=== PATIENT | male | born 1945 | race Caucasian/White ===

== ENCOUNTER 2022-01-14 14:45 | Inpatient (IN) | payer MEDICARE, SELFPAY ==
--- NOTE | ~2022-01-14 | NM_ITS ---
EXAMINATION: NM pulmonary perfusion DATE: 01/19/2022 12:12 INDICATION: Shortness of breath. TECHNIQUE: 4.94 mCi Tc-99m MAA was administered intravenously for perfusion images. Scintigraphic im ages of the chest were obtained. COMPARISON: Chest single view 01/18/2022 FINDINGS: Perfusion images show matched large defects involving all lobes. IMPRESSION: 1. Nondiagnostic (intermediate probability for pulmonary embolism). Reviewed, dictated and finalized at location A.
--- NOTE | ~2022-01-14 | XR_ITS ---
EXAMINATION: XR chest 1V portable DATE: 01/18/2022 08:20 INDICATION: Dyspnea. TECHNIQUE: A single frontal view of the chest was obtained. COMPARISON: None. FINDINGS: The lungs are hyperexpanded with lucencies, consistent with emphysema. There is a diffuse i nterstitial pattern in the lungs. There are mild airspace opacities in right mid and lower lung zones and left lower lung zone. No pleural effusion or pneumothorax. The heart size is normal. There is a right internal jugular central venous catheter with tip in superior vena cava. IMPRESSION: 1. Diffuse lung disease, likely mild pulmonary edema and/or pneumonia superimposed on emphysema. Reviewed, dictated and finalized at location A. IMPRESSION: 1. Diffuse lung disease, likely mild pulmonary edema and/or pneumonia superimpo sed on emphysema.
[2022-01-14 15:10] VITALS: BMI 23.0
[2022-01-14 15:15] VITALS: O2SAT 91
[2022-01-14 15:52] VITALS: BP 140/86; PULSE 88; RESP 18; TEMP 36.4; O2SAT 91
[2022-01-14 18:49] LABS: Add Urine Microscopic? YES; Appearance Urine Clear (Clear); Bilirubin Urine Negative (Negative); Blood Urine 3+ (Negative); Color Urine Light Yellow (Yellow); Glucose Urine UA Negative (Negative); Ketones Urine Negative (Negative); Leukocyte Esterase Ur Negative LEU/UL (Negative); Nitrate Urine Negative (Negative); Protein Urine 1+ (Negative); Specific Grav Ur <= 1.005 (1.010-1.020); Urobilinogen Urine 0.2 mg/dL (0.2-1.0)
[2022-01-14 18:55] LABS: Bacteria Urine Trace /hpf; WBC Urine 0-3 /hpf (0-3)
[2022-01-14] MEDS: ATORVASTATIN 10 MG TABLET 20 MG PO (20:44)
[2022-01-14] MEDS: FAMOTIDINE 20 MG TABLET PO (20:44)
[2022-01-14] MEDS: HYDROcodone/acetaminophen (*CRX) 10-325 MG TABLET 1 TAB BY MOUTH (20:45)
[2022-01-14 23:33] VITALS: BP 123/51; PULSE 87; RESP 17; TEMP 36.7; O2SAT 90
[2022-01-14 23:36] VITALS: O2SAT 90
[2022-01-15] VITALS (8 sets, daily range): BP systolic 120–137; BP diastolic 55–64; PULSE 88–103; RESP 15–18; TEMP 36.2–36.3; O2SAT 88–97
[2022-01-15] MEDS: TAMSULOSIN HCL 0.4 MG CAPSULE PO (08:47)
[2022-01-15] MEDS: allopurinoL 150 MG TABLET PO (08:47)
[2022-01-15] MEDS: MAGNESIUM OXIDE 400 MG TABLET PO (08:47)
[2022-01-15] MEDS: ASPIRIN 81 MG CHEWABLE TABLET PO (08:47)
[2022-01-15] MEDS: HYDROcodone/acetaminophen (*CRX) 10-325 MG TABLET 1 TAB BY MOUTH ×2 (08:48→17:44)
[2022-01-15] MEDS: LORATADINE 10 MG TABLET PO (08:48)
--- NOTE | 2022-01-15 10:06 | PHAR ---
spoke with pharmacist at [facility] 01/14/22. She said notes in patient chart dictate he is to have a total of 6 weeks of daptomycin starting 01/05, and 27 more days of cefepime therapy upon transfer (last day cefepime therapy 01/10/22). tls
--- NOTE | 2022-01-15 10:24 | PM.IMHP ---
H&P: HPI History of Present Illness Date/Time: 01/15/22 10:24 Chief Complaint: Infected right hip hardware, Weakness Narrative: This is a 76-year-old male that came from [facility] with a revision of his right total hip Arthroplasty plasty with the removal of the spacer and antibiotics due to infection by Dr. Weldon. 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 Patient has a past smoker he smoked for 30 years has quit for more than 20 he has had a tonsillectomy before patient will come to us for IV antibiotics for 6 weeks[address] Mr. Goddard will be toe-touch weightbearing with physical therapy as well his he will not do any straight leg lifts and hip precautions. Patient comes on oxygen of 2.5 L satting between 91 and 97% he denies feeling short of breath patient states he does not understand why he is still on it we will attempt to wean patient from oxygen. Patient also complains of having sore on his heel that he obtained while in the hospital from pushing himself up in the bed after review of the snot open looks like it is healing we will apply some Skin-Prep and elevate his foot at times. Patient also has a Greenberg catheter does not have one at home we will attempt to wean and bladder training him if he is unable to urinate we will maintain the Greenberg catheter. Review last set of labs WBCs was 14 hemoglobin 10.8, [place] 33.8 platelets 290 ALT 24, AST 21 patient has remained afebrile he will continue with physical therapy patient has stage IV chronic kidney disease creatinine is normally around 2-2.2 CHF with reduced EF of 35% history of gout hypertension we will continue to monitor as he participates with therapy and IV antibiotics Review of Systems Review of Systems: Hip pain, heall abrasion healing All systems reviewed & are unremarkable except as noted in HPI and below PMFSH Social History Social History Smoking status: Former smoker Tobacco type: cigarettes Second hand tobacco smoke exposure: Yes Alcohol intake: never Substance use: never Substance use type: does not use Spiritual care concerns: No Comments At time as signature, I have reviewed and agree with nursing past medical, social, surgical and family history. Please see nursing chart for further information. There is no relevant family history pertinent to the presenting complaint. Meds Home Medications and Allergies Home Medications Medication Instructions Recorded Confirmed Type allopurinol 100 mg tablet 150 mg PO DAILY 01/14/22 01/14/22 History aspirin 81 mg chewable tablet 81 mg PO DAILY 01/14/22 01/14/22 History atorvastatin 20 mg tablet 20 mg PO HS 01/14/22 01/14/22 History cefepime 1 gram intravenous 1 g IV Q12H 01/14/22 01/14/22 History piggyback daptomycin 500 mg IV DAILY 01/14/22 01/14/22 History famotidine 20 mg tablet 20 mg PO HS 01/14/22 01/14/22 History hydrocodone 10 mg-acetaminophen 1 tablet Q8-10H PRN Pain 01/14/22 01/14/22 History 325 mg tablet loratadine 10 mg tablet 10 mg PO DAILY 01/14/22 01/14/22 History magnesium oxide 400 mg (241.3 mg 400 mg PO DAILY 01/14/22 01/14/22 History magnesium) tablet metaxalone 800 mg tablet (Skelaxin) 800 mg PO TID PRN Spasms 01/14/22 01/14/22 History metoprolol tartrate 25 mg tablet 25 mg PO BID 01/14/22 01/14/22 History tamsulosin 0.4 mg capsule 0.4 mg PO DAILY 01/14/22 01/14/22 History tramadol 50 mg tablet 50 mg PO Q6H PRN Pain 01/14/22 01/14/22 History Allergies Allergy/AdvReac Type Severity Reaction Status Date / Time No Known Allergies Allergy Verified 01/14/22 16:20 Vital Signs Vital Signs - 24 hr 01/14/22 15:52 01/14/22 23:33 01/14/22 23:36 Temperature 97.
[2022-01-15] MEDS: DAPTOmycin 500 MG in SODIUM CHLORIDE 0.9% IV 50 ML 100 MG IVPB (12:49)
[2022-01-15] MEDS: traMADol HCL (*CRX) 50 MG TABLET PO ×2 (12:57→21:33)
[2022-01-15] MEDS: ATORVASTATIN 10 MG TABLET 20 MG PO (21:23)
[2022-01-15] MEDS: FAMOTIDINE 20 MG TABLET PO (21:24)
[2022-01-16 06:00] VITALS: O2SAT 92
[2022-01-16] MEDS: HYDROcodone/acetaminophen (*CRX) 10-325 MG TABLET 1 TAB BY MOUTH (06:34)
[2022-01-16 07:50] VITALS: BP 112/64; PULSE 106; RESP 18; TEMP 36.2; O2SAT 94
[2022-01-16] MEDS: MAGNESIUM OXIDE 400 MG TABLET PO (09:02)
[2022-01-16] MEDS: ASPIRIN 81 MG CHEWABLE TABLET PO (09:02)
[2022-01-16] MEDS: LORATADINE 10 MG TABLET PO (09:02)
[2022-01-16] MEDS: TAMSULOSIN HCL 0.4 MG CAPSULE PO (09:02)
[2022-01-16] MEDS: allopurinoL 150 MG TABLET PO (09:02)
[2022-01-16] MEDS: traMADol HCL (*CRX) 50 MG TABLET PO ×2 (10:32→18:11)
[2022-01-16] MEDS: DAPTOmycin 500 MG in SODIUM CHLORIDE 0.9% IV 50 ML 100 MG IVPB (13:40)
[2022-01-16 16:00] VITALS: BP 130/68; PULSE 78; RESP 18; TEMP 36.2; O2SAT 95
[2022-01-16] MEDS: FAMOTIDINE 20 MG TABLET PO (20:30)
[2022-01-16] MEDS: ATORVASTATIN 10 MG TABLET 20 MG PO (20:30)
[2022-01-16 23:39] VITALS: BP 127/60; PULSE 83; RESP 18; TEMP 36.2; O2SAT 95
[2022-01-17 06:00] VITALS: RESP 18; O2SAT 92
[2022-01-17] MEDS: HYDROcodone/acetaminophen (*CRX) 10-325 MG TABLET 1 TAB BY MOUTH ×3 (07:52→23:58)
[2022-01-17 08:00] VITALS: BP 131/64; PULSE 98; RESP 18; TEMP 36.2; O2SAT 90
[2022-01-17] MEDS: allopurinoL 150 MG TABLET PO (08:17)
[2022-01-17] MEDS: ASPIRIN 81 MG CHEWABLE TABLET PO (08:18)
[2022-01-17] MEDS: MAGNESIUM OXIDE 400 MG TABLET PO (08:19)
[2022-01-17] MEDS: TAMSULOSIN HCL 0.4 MG CAPSULE PO (08:19)
[2022-01-17] MEDS: LORATADINE 10 MG TABLET PO (08:19)
[2022-01-17] MEDS: DAPTOmycin 500 MG in SODIUM CHLORIDE 0.9% IV 50 ML 100 MG IVPB (11:54)
[2022-01-17] MEDS: traMADol HCL (*CRX) 50 MG TABLET PO ×2 (11:54→20:37)
[2022-01-17 16:00] VITALS: BP 153/70; PULSE 101; RESP 18; TEMP 36.2; O2SAT 91
[2022-01-17] MEDS: ATORVASTATIN 10 MG TABLET 20 MG PO (20:36)
[2022-01-17] MEDS: FAMOTIDINE 20 MG TABLET PO (20:37)
[2022-01-18] VITALS (9 sets, daily range): BP systolic 111–158; BP diastolic 53–80; PULSE 86–114; RESP 18–20; TEMP 36.2–36.6; O2SAT 90–94
--- NOTE | 2022-01-18 02:38 | PC.NURSE ---
[place] is unable to chart on progress on patient care goals. Therefore, the charge nurse charts on the progress, in conjunction with [place].
[2022-01-18] MEDS: traMADol HCL (*CRX) 50 MG TABLET PO (05:55)
[2022-01-18] MEDS: allopurinoL 150 MG TABLET PO (08:21)
[2022-01-18] MEDS: TAMSULOSIN HCL 0.4 MG CAPSULE PO (08:21)
[2022-01-18] MEDS: ASPIRIN 81 MG CHEWABLE TABLET PO (08:21)
[2022-01-18] MEDS: SACCHAROMYCES BOULARDII 250 MG CAPSULE PO ×2 (08:22→17:48)
[2022-01-18] MEDS: MAGNESIUM OXIDE 400 MG TABLET PO (08:22)
[2022-01-18] MEDS: LORATADINE 10 MG TABLET PO (08:22)
[2022-01-18] MEDS: HYDROcodone/acetaminophen (*CRX) 10-325 MG TABLET 1 TAB BY MOUTH ×2 (08:24→19:37)
--- NOTE | 2022-01-18 08:49 | P.PNCROSS_ITS ---
Event Note Event Note Event Note: There is no history on this patient documented. Patient is a poor historian co ncerning his history the only thing he knows is that he only has 1 kidney is unsure of which one. 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 He also notes that his blood pressure is controlled. By looking at the patient's medications it appears that he might have gout along with HLD along with acid reflux and hypertension. Patient x-ray indicated possible pneumonia versus pulmonary edema. Patient is currently on oral antibiotics. Will give patient 1 dose of Lasix for possible pulmonary edema. I have also started albuterol along with Symbicort. will Follow-up
[2022-01-18 09:02] LABS: Hematocrit 31.8 % (37.0-46.0); Hemoglobin 10.2 g/dL (12.4-15.3); Mean Corpuscular HGB Conc 32.1 g/dL (32.0-36.0); Mean Corpuscular Hemoglobin 28.8 pg (27.0-31.0); Mean Corpuscular Volume 89.8 fL (78.0-102.0); Mean Platelet Volume 9.1 fl (8.7-11.0); Platelet Count Result 338 K/mm3 (150-420); Red Blood Count 3.54 M/mm3 (4.70-6.10); Red Cell Distribution Width 14.4 % (11.6-14.4); White Blood Count 9.6 K/mm3 (4.8-10.8)
[2022-01-18] MEDS: BUDESONIDE/FORMOTEROL (*SP) 160-4.5 MCG 6 GM INH 2 PUFF INHALATION ×2 (09:03→18:58)
[2022-01-18] MEDS: FUROSEMIDE INJ 40 MG/4 ML VIAL IV PUSH (09:09)
--- NOTE | 2022-01-18 09:10 | PC.NURSE ---
As expert medical writer and another nurse attempted to get patient up for breakfast, patient became dizzy and SOB. Patient used bedside commode and GRAPHIC COORDINATOR was asked to come in and check on patient. GRAPHIC COORDINATOR ordered CXR, and labs. CXR shows mild pulmonary edema. New orders in place for inhalers and one time order for lasix IV. Patient placed back in bed in high oliva's position for breakfast. Patient seems very concerned about his health and is anxious.
[2022-01-18 09:20] LABS: Alanine Aminotransferase 42 U/L (16-63); Albumin Level 2.3 g/dL (3.4-5.0); Alkaline Phosphatase 96 U/L (46-116); Anion Gap 13 mmol/L (8-16); Aspartate Amino Transferase 45 U/L (15-37); Bilirubin,Total 0.5 mg/dL (0.00-1.00); Blood Urea Nitrogen 40 mg/dL (7-18); Carbon Dioxide 24 mmol/L (21-32); Chloride 96 mmol/L (98-108); Estimated CRCL calculation 18 ml/min; Estimated Glomerular Filt Rate 17; Glucose 125 mg/dL (70-99); Osmolality Calculated 286 mOsm/kg (285-295); Potassium 3.2 mmol/L (3.5-5.1); Sodium 133 mmol/L (136-145); Total Protein 6.9 g/dL (6.4-8.2)
--- NOTE | 2022-01-18 11:41 | PC.NURSE ---
Bus And Rail Operator attempted to get patient up for lunch and patient refused, stating he doesn't want his visiting grandsons to see grandpa at his worst. Bus And Rail Operator encouraged patient to get up due to laying in bed not being good for patient's lungs, and patient needs to change positions and cannot turn fully side to side due to his orthopedic condition. Patient still refuses to get up into chair.
[2022-01-18] MEDS: DAPTOmycin 500 MG in SODIUM CHLORIDE 0.9% IV 50 ML 100 MG IVPB (11:57)
--- NOTE | 2022-01-18 16:46 | ECG_ITS ---
Measurements Intervals [place] Rate: 127 P: 207 NE: 170 QRS: 250 QRSD: 118 T: 91 QT: 333 QTc: 486 Interpretive Statements SINUS TACHYCARDIA WITH OCCASIONAL VENTRICULAR PREMATURE COMPLEXES RIGHT AXIS DEVIATION BASELINE ARTIFACT LOW QRS VOLTAGE IN EXTREMITY LEADS MODERATE INTRAVENTRICULAR CONDUCTION DELAY NONSPECIFIC ST ABNORMALITY ABNORMAL ECG NO PREVIOUS ECG AVAILABLE FOR COMPARISON Electronically Signed On 01-19-2022 16:06:41 CDT by Rocky Spence M.D.
--- NOTE | 2022-01-18 17:12 | P.PNCROSS_ITS ---
Event Note Event Note Event Note: received call from nursing staff at 4:51 informing me that when Physical therap hy got the patient up his HR went in the 120. Ordered cbc, cmp, dimer metoprolol and ativan for patient. Called to ED md and informed him of patients condition.
[2022-01-18] MEDS: LORazepam INJ (*CRX) 2 MG/ML VIAL 0.5 MG IV PUSH (17:21)
[2022-01-18 17:29] LABS: Hematocrit 33.2 % (37.0-46.0); Hemoglobin 10.8 g/dL (12.4-15.3); Mean Corpuscular HGB Conc 32.5 g/dL (32.0-36.0); Mean Corpuscular Hemoglobin 29.1 pg (27.0-31.0); Mean Corpuscular Volume 89.5 fL (78.0-102.0); Mean Platelet Volume 9.1 fl (8.7-11.0); Platelet Count Result 355 K/mm3 (150-420); Red Blood Count 3.71 M/mm3 (4.70-6.10); Red Cell Distribution Width 14.3 % (11.6-14.4)
[2022-01-18] MEDS: METOPROLOL TARTRATE INJ 5 MG/5 ML VIAL IV PUSH (17:32)
[2022-01-18 17:50] LABS: Lactic Acid Reflex 4.1 mmol/L (0.4-2.0)
[2022-01-18 17:54] LABS: Alanine Aminotransferase 42 U/L (16-63); Albumin Level 2.4 g/dL (3.4-5.0); Alkaline Phosphatase 99 U/L (46-116); Anion Gap 15 mmol/L (8-16); Aspartate Amino Transferase 51 U/L (15-37); Bilirubin,Total 0.4 mg/dL (0.00-1.00); Blood Urea Nitrogen 42 mg/dL (7-18); Calcium 9.1 mg/dL (8.5-10.1); Carbon Dioxide 24 mmol/L (21-32); Chloride 94 mmol/L (98-108); Estimated CRCL calculation 17 ml/min; Estimated Glomerular Filt Rate 17; Glucose 104 mg/dL (70-99); Osmolality Calculated 286 mOsm/kg (285-295); Sodium 133 mmol/L (136-145); Total Protein 7.1 g/dL (6.4-8.2)
[2022-01-18 18:00] LABS: D Dimer 1.52 mg/L (0.19-0.50)
[2022-01-18 18:01] LABS: NT Pro B Type Natriuretic Pept 11389 pg/mL (0-450); Troponin I 40.3 ng/L (0.00-60.4)
--- NOTE | 2022-01-18 18:07 | PC.NURSE ---
0800 photoengraving machine operator/tender aware of ortho stat bp's. c/o dizziness with movement. c/o sob with exertion. new orders. mia garnett 1630 photoengraving machine operator/tender aware that with little to no exertion heart rate is all over. rates 130's and then back down in 80's. c/o sob. c/o not feeling right. new orders. mia garnett 180 benito aware of lab results and critical results. new orders. mia garnett
[2022-01-18] MEDS: ENOXAPARIN 100 MG/ML SYRINGE 75 MG SUB-Q (18:43)
[2022-01-18] MEDS: FUROSEMIDE INJ 100 MG/10 ML VIAL 80 MG IV PUSH (18:45)
[2022-01-18] MEDS: POTASSIUM CHLORIDE 20 MEQ PACKET (FOR LIQUID) 40 MEQ PO (18:46)
--- NOTE | 2022-01-18 19:18 | PC.NURSE ---
Patient exhibited SOB and weakness with therapy. Upon assessment nurse discovered tachycardia and irregular HR. DISTRICT PLANT SUPERVISOR notified of change in condition and multiple interventions implemented, including telemetry, EKG, Labs and multiple medications. Patient is currently in bed with at bedside. Awaiting test results and further orders.
[2022-01-18 19:36] LABS: Add Urine Microscopic? YES; Bilirubin Urine Negative (Negative); Blood Urine 3+ (Negative); Color Urine Light Yellow (Yellow); Glucose Urine UA Negative (Negative); Ketones Urine Negative (Negative); Leukocyte Esterase Ur Negative LEU/UL (Negative); Nitrate Urine Negative (Negative); Protein Urine 2+ (Negative); Specific Grav Ur 1.015 (1.010-1.020); Urobilinogen Urine 0.2 mg/dL (0.2-1.0)
[2022-01-18 19:59] LABS: Appearance Urine Cloudy (Clear)
[2022-01-18 20:00] LABS: Amorphous Sediment Urine Heavy; Bacteria Urine 1+ /hpf; Mucus Urine Heavy /lpf; RBC Urine 0-2 /hpf (0-2)
[2022-01-18 20:19] LABS: SARS-CoV-2 RNA PCR Negative (Negative)
[2022-01-18] MEDS: METOPROLOL TARTRATE 6.25 MG TABLET PO (20:21)
[2022-01-18] MEDS: ATORVASTATIN 10 MG TABLET 20 MG PO (20:21)
[2022-01-18] MEDS: FAMOTIDINE 20 MG TABLET PO (20:21)
[2022-01-18 20:33] LABS: Reflex Lactic Acid Yes or No Add Lactic
[2022-01-18 22:00] LABS: Lactic Acid 1.1 mmol/L (0.4-2.0)
[2022-01-19] VITALS (11 sets, daily range): BP systolic 113–144; BP diastolic 59–66; PULSE 62–103; RESP 16–30; TEMP 36.3–36.4; O2SAT 78–94
[2022-01-19] MEDS: traMADol HCL (*CRX) 50 MG TABLET PO ×3 (05:12→20:31)
[2022-01-19] MEDS: ENOXAPARIN 100 MG/ML SYRINGE 75 MG SUB-Q ×2 (05:13→16:59)
[2022-01-19] MEDS: BUDESONIDE/FORMOTEROL (*SP) 160-4.5 MCG 6 GM INH 2 PUFF INHALATION ×2 (05:16→17:00)
[2022-01-19 05:25] LABS: Hematocrit 31.8 % (37.0-46.0); Hemoglobin 10.2 g/dL (12.4-15.3); Mean Corpuscular HGB Conc 32.1 g/dL (32.0-36.0); Mean Corpuscular Volume 87.4 fL (78.0-102.0); Mean Platelet Volume 9.1 fl (8.7-11.0); Platelet Count Result 339 K/mm3 (150-420); Red Blood Count 3.64 M/mm3 (4.70-6.10); Red Cell Distribution Width 14.6 % (11.6-14.4)
[2022-01-19 05:39] LABS: Anion Gap 9 mmol/L (8-16); Blood Urea Nitrogen 43 mg/dL (7-18); CRP 23.2 mg/dL (0.0-0.9); Calcium 8.9 mg/dL (8.5-10.1); Carbon Dioxide 28 mmol/L (21-32); Chloride 95 mmol/L (98-108); Estimated CRCL calculation 17 ml/min; Estimated Glomerular Filt Rate 17; Glucose 95 mg/dL (70-99); Osmolality Calculated 284 mOsm/kg (285-295); Potassium 3.7 mmol/L (3.5-5.1); Sodium 132 mmol/L (136-145)
--- NOTE | 2022-01-19 06:08 | PC.NURSE ---
Patient's telemetry showed frequent PVCs with sinus rhythm to sinus tachycardia throughout the night. Tachycardia was typically below 108, although occasionally ran higher for very brief moments. Patient's heart rate was higher when he took off his oxygen, and right before he took pain medication.
--- NOTE | 2022-01-19 08:21 | PCOTNOTE ---
Per nursing, to skip AM therapy treatment due to patient's current medical status. Nursing to address and OT will assess patient's activity level in PM.
[2022-01-19] MEDS: TAMSULOSIN HCL 0.4 MG CAPSULE PO (09:00)
[2022-01-19] MEDS: SACCHAROMYCES BOULARDII 250 MG CAPSULE PO ×2 (09:00→16:59)
[2022-01-19] MEDS: METOPROLOL TARTRATE 6.25 MG TABLET PO ×2 (09:00→20:30)
[2022-01-19] MEDS: MAGNESIUM OXIDE 400 MG TABLET PO (09:00)
[2022-01-19] MEDS: allopurinoL 150 MG TABLET PO (09:00)
[2022-01-19] MEDS: LORATADINE 10 MG TABLET PO (09:01)
[2022-01-19] MEDS: ASPIRIN 81 MG CHEWABLE TABLET PO (09:01)
[2022-01-19 09:11] LABS: Creatine Kinase 314 U/L (39-308)
[2022-01-19] MEDS: HYDROcodone/acetaminophen (*CRX) 10-325 MG TABLET 1 TAB BY MOUTH ×2 (09:55→16:59)
--- NOTE | 2022-01-19 10:23 | IDPHARM ---
[facility] was consulted by Laila Slater regarding infectious diseases for BARBI ARRIOLA. BARBI ARRIOLA is a 77 year old M with concerns regarding the abnormal urinalysis and patients ongoing anti-infective therapy monitored by [facility]. Background The patient is currently receiving Daptomycin and Cefepime secondary to concerns regarding his SEVEN. Patient has a history of CKD and CV disease. Additionally, patient has a CK of 314, WBC of 11 and SCr of 3.5 (baseline ~2-2.2 mg/dL) Assessment/Recommendation/Discussion Provider was concerned with the urinalysis showing bacteria when previous UA did not. Will obtain urine culture to follow though understand that current cefepime may make the results show no growth. The elevated CK can be from the daptomycin dosing, and potentially be a cause for this worsening CrCl. Doses of these two anti-infectives were adjusted today to reflect current renal function. Results and concerns are/were forwarded to [facility] and look forward to hearing from them soon to help guide care. Thank you for the interesting consult. Kadeem Jauregui, PharmD Infectious Disease/Antimicrobial Stewardship Pharmacist 01/19/22; 3019
--- NOTE | 2022-01-19 10:24 | P.PNCROSS_ITS ---
Event Note Event Note Event Note: Called and spoke with Cardiology Dr. Fink awaiting for return call back I ALSO SPOKE WITH Infectious disease pharmacist Dr. Jauregui we discussed patient labs and his CPK being 314 slightly high and the risk he could go into Rhabdo. Patient Dapto has been changed to Q 48 hours, Cefepime changed to q 24 hours instead of q12. Patient urine that was sent off I placed for a culture to be sent off on that as well. Discussed that we sent Infectious disease at [facility] a copy of the labs as well. I reviewed patient chart at [facility] and the orthostatic hypotension is not new he had a few episodes of this there. He also had a few days of Tachycardia noted in the chart there as well. I also left a message for patient Box Finisher awaiting a call back. Patient had a VQ scan completed awaiting results at this time.
--- NOTE | 2022-01-19 17:15 | PCOTNOTE ---
Patient unable to participate at this time due to decline in medical status, the patient refused to get up out of bed to sit and eat dinner and the family reports the patient is very tired at this time. The patient requests to be seen tomorrow as he does not feel well at this time.
[2022-01-19] MEDS: ATORVASTATIN 10 MG TABLET 20 MG PO (20:30)
[2022-01-19] MEDS: FAMOTIDINE 20 MG TABLET PO (20:32)
[2022-01-20] VITALS (12 sets, daily range): BP systolic 95–123; BP diastolic 44–81; PULSE 55–115; RESP 15–20; TEMP 36.2–36.6; O2SAT 89–97
[2022-01-20] MEDS: ENOXAPARIN 100 MG/ML SYRINGE 75 MG SUB-Q (06:04)
[2022-01-20] MEDS: BUDESONIDE/FORMOTEROL (*SP) 160-4.5 MCG 6 GM INH 2 PUFF INHALATION ×2 (06:42→17:00)
[2022-01-20] MEDS: HYDROcodone/acetaminophen (*CRX) 10-325 MG TABLET 1 TAB BY MOUTH ×2 (06:47→16:59)
[2022-01-20 08:56] LABS: Hematocrit 31.4 % (37.0-46.0); Mean Corpuscular HGB Conc 31.8 g/dL (32.0-36.0); Mean Corpuscular Hemoglobin 28.2 pg (27.0-31.0); Mean Corpuscular Volume 88.7 fL (78.0-102.0); Mean Platelet Volume 9.3 fl (8.7-11.0); Platelet Count Result 368 K/mm3 (150-420); Red Blood Count 3.54 M/mm3 (4.70-6.10); Red Cell Distribution Width 14.6 % (11.6-14.4); White Blood Count 12.4 K/mm3 (4.8-10.8)
[2022-01-20 09:12] LABS: Anion Gap 14 mmol/L (8-16); Blood Urea Nitrogen 52 mg/dL (7-18); Calcium 8.7 mg/dL (8.5-10.1); Carbon Dioxide 24 mmol/L (21-32); Chloride 90 mmol/L (98-108); Estimated CRCL calculation 14 ml/min; Estimated Glomerular Filt Rate 13; Glucose 148 mg/dL (70-99); Osmolality Calculated 283 mOsm/kg (285-295); Potassium 4.1 mmol/L (3.5-5.1); Sodium 128 mmol/L (136-145)
[2022-01-20] MEDS: METOPROLOL TARTRATE 6.25 MG TABLET PO ×2 (09:20→21:21)
[2022-01-20] MEDS: TAMSULOSIN HCL 0.4 MG CAPSULE PO (09:20)
[2022-01-20] MEDS: SACCHAROMYCES BOULARDII 250 MG CAPSULE PO ×2 (09:20→16:59)
[2022-01-20] MEDS: allopurinoL 150 MG TABLET PO (09:20)
[2022-01-20] MEDS: LORATADINE 10 MG TABLET PO (09:21)
[2022-01-20] MEDS: MAGNESIUM OXIDE 400 MG TABLET PO (09:21)
[2022-01-20] MEDS: ASPIRIN 81 MG CHEWABLE TABLET PO (09:21)
--- NOTE | 2022-01-20 09:29 | PC.NURSE ---
Lab results faxed to nephrology group in [facility].
--- NOTE | 2022-01-20 10:08 | P.PNCROSS_ITS ---
Event Note Event Note Event Note: Called and faxed lab results to Dr. Delgado office spoke with Enedelia who will h ave Dr. Delgado call back after the results. I did inform her that we switched up patient antibiotics to Cefepime q 24 hours an daptomycin Q [address] Navarro nurse Sridevi and we Discussed that patient VQ scan showed intermediate and he was on Lovenox and I was going to switch him to Eliquis 10 mg bid for 7 days then 5mg bid I was going to start a low dose of Lasix as his bnp 11k and he is urinating less with increased shortness of breath Patient is complaining shortness of breath and I was going to start Xopenex breathing treatment as his heart rate is slightly elevated. Yesterday his lab results were faxed to Infectious disease and change in medication was sent as well. Infectious disease pharmacist was wanting a call on to see if there is any growth on his urine culture.
[2022-01-20] MEDS: FUROSEMIDE 20 MG TABLET PO (10:55)
[2022-01-20] MEDS: BENZOCAINE/MENTHOL (*BKC) LOZENGE 1 LOZENGE PO ×2 (11:31→23:02)
[2022-01-20] MEDS: DAPTOmycin 500 MG in SODIUM CHLORIDE 0.9% IV 50 ML 100 MG IVPB (12:53)
[2022-01-20] MEDS: traMADol HCL (*CRX) 50 MG TABLET PO ×2 (12:54→21:18)
[2022-01-20] MEDS: LEVALBUTEROL NEB 1.25 MG/3 ML INHALATION ×2 (15:51→22:20)
--- NOTE | 2022-01-20 17:30 | PC.NURSE ---
Patient reporting some nausea, states he has had it on and off all day. Abdirahman MINAYA contacted, new order received.
[2022-01-20] MEDS: ONDANSETRON INJ 4 MG/2 ML VIAL IV PUSH (17:36)
--- NOTE | 2022-01-20 19:33 | PC.NURSE ---
While this RN was updating the nurse on shift on pt whiteboard pt awoke and recalled this RN previously taking care of him days prior. Pt communicated that he felt tired and weak. This RN asked if the pt was up to possibly eat something, but Zaid stated no, I felt nauseous earlier and don't want to make it worse. Pt did ask what causes nausea, and was taught multiple different triggers for nausea and verbalized understanding. Pt was also educated on his new medication of Eliquis. Pt verbalized understanding, but this RN feels the some reinforcement may be needed due to the pt's fatigue which could be a barrier to comprehending teaching. This RN instructed the pt to call the nurses station if he needed anything or if he felt nauseous and pt verbalized understanding. Call light placed w/in reach and bed in lowest position for pt safety.
[2022-01-20] MEDS: ATORVASTATIN 10 MG TABLET 20 MG PO (21:18)
[2022-01-20] MEDS: FAMOTIDINE 20 MG TABLET PO (21:18)
[2022-01-20] MEDS: APIXABAN 2.5 MG TABLET 10 MG PO (21:19)
--- NOTE | 2022-01-20 21:55 | PM.DS ---
DS: Admitting Diagnosis Discharge Date Admitting Diagnosis infected hardware DS: Discharge Diagnosis Discharge Diagnosis (1) S/P hardware removal: Code(s): Z98.890 - Other specified postprocedural states Status: Acute Assessment and Plan: IV antibiotic Daptomycin 6 week Cefepime 28 days [facility] infectious disease following monitor for s/s of infection PT no straight leg raise TTWB Right foot (2) Sepsis: Code(s): A41.9 - Sepsis, unspecified organism Status: Acute Assessment and Plan: Resolved monitor labs on Wednesday and fax to [facility]ious [facility] cbc, bmp, crp (3) CKD (chronic kidney disease) stage 4, GFR 15-29 ml/min: Code(s): N18.4 - Chronic kidney disease, stage 4 (severe) Status: Acute Assessment and Plan: CR 2-2.2 is the normal avoid nephrotoxic medication banda catheter in due to retention attempt to bladder train pt wanting catheter out (4) Gout: Code(s): M10.9 - Gout, unspecified Status: Acute Assessment and Plan: no acute attack at this time (5) Hypertension: Code(s): I10 - Essential (primary) hypertension Status: Acute Assessment and Plan: take medication as prescribed (6) Upper respiratory disease: Code(s): J39.9 - Disease of upper respiratory tract, unspecified Status: Acute Assessment and Plan: Oxygen pe rnc monitor saturation wean from oxygen Plan Acute renal failure, Infected hardware DS: Summary Hospital Course Reason for hospitalization: infected hardware , weakness, acute renal failure Hospital Course: This is a 77 year old male that presented to our swing bed for IV antibiotics due to infected hardware of the hip that was removed. Patient continued to receive IV antibiotic which was changed due to increased cr level and risk of Rhabdomyolysis. Patient Daptomycin was changed to Q 48 hours and Cefepime was Q24 hours . Patient Creatine level continues to increase with last one at 4.35 and reduced urine output. We have attempted to start some Lasix to see if it helps to improve patient urine output and decrease his BNP which was 11k. Patient is also having increased shortness of breath in which he is now requiring 4l of oxygen and increase shortness of breath with exertion. Patient DD is elevated and VQ scan is showing intermediate risk of PE at this time patient with all of his co morbidity is high risk and has been started on anticoagulation due to this. Calls have been placed to [facility] for transfer in which he has been accepted by the hospitalist Dr. Soares he will be transferred by ambulance Time Spent with Patient Time attestation: Total time spent providing and/or coordinating discharge services: Exam Narrative: GENERAL:Well-appearing, well-nourished, and in no acute distress. HEAD:Normocephalic, atraumatic. EYES: PERRLA and EOMI. ENT: Nares clear, no rhinorrhea or epistaxis. Mucous membranes moist. NECK: Supple. CHEST: Clear to auscultation. No respiratory distress. Oxygen on HEART: Regular rate and rhythm. No murmur heard. Normal peripheral pulses. ABDOMEN: Soft, nontender, nondistended, normal active bowel sounds. : Banda catheter draining clear yellow urine EXTREMITIES: decreased range of motion due to surgery surgical scar healing well no s/s of infection noted guarding noted by patient . trace edema left heal abrasion no open area . SKIN: Warm, dry, no rash. NEURO: No focal deficits. Alert and oriented x3. some confusion noted DS: Data Data Completed and Pending Labs on day of discharge: Labs from last 24 hours 01/20/22 01/20/22 08:45 08:45 WBC 12.4 H RBC 3.54 L Hgb 10.0 L Hct 31.4 L MCV 88.7 MCH 28.2 MCHC 31.8 L RDW 14.6 H Plt Count 368 MPV 9.3 Sodium 128 L Potassium 4.1 Chloride 90 L Carbon Dioxide 24 Anion Gap 14 BUN 52 H Creatinine 4.35 H* Es
--- NOTE | 2022-01-20 22:40 | PC.NURSE ---
Patient's , Keisha, notified of transfer and patient's room number at [facility] will be [id number].
--- NOTE | 2022-01-20 23:10 | PC.NURSE ---
[facility] called for a patient transfer to [facility] in [place], [place].
--- NOTE | 2022-01-20 23:10 | PC.NURSE ---
Pt belongings placed in bag by bedside and pt notified of transfer and his room number at [facility]. Pt's phone placed in R shoe per request from . Call light w/in reach of pt.
--- NOTE | 2022-01-20 23:48 | PC.NURSE ---
[facility] here to transport pt to [facility] in [place], [place].
--- NOTE | 2022-01-20 23:55 | PC.NURSE ---
Pt and belongings left w/[facility].
== END 2022-01-20 23:55 | disposition short-term general hospital (02) | DRG 949 ==
PROVIDERS: Nurse Practitioner; Nurse Practitioner Family; Admitting Provider Internal Medicine; PCP Family Medicine; Visit Provider Internal Medicine
DX: T84.51XD Infection and inflammatory reaction due to internal right hip prosthesis, subsequent encounter (principal); I26.99 Other pulmonary embolism without acute cor pulmonale; N18.4 Chronic kidney disease, stage 4 (severe); I13.0 Hypertensive heart and chronic kidney disease with heart failure and stage 1 through stage 4 chronic kidney disease, or unspecified chronic kidney disease; N17.9 Acute kidney failure, unspecified; Q60.0 Renal agenesis, unilateral; I50.9 Heart failure, unspecified; K21.9 Gastro-esophageal reflux disease without esophagitis; J98.9 Respiratory disorder, unspecified; M10.9 Gout, unspecified; Z20.822 Contact with and (suspected) exposure to COVID-19; Z87.891 Personal history of nicotine dependence; Z79.82 Long term (current) use of aspirin
CPT/HCPCS: 36415; 71045; 78580; 80048; 80053; 81001; 82550; 83605; 83880; 84484; 85027; 85380; 86140; 87040; 87086; 93005; 94640; 97110; 97161; 97165; 97530; 97535; A9270; A9540; C9803; J0692; J0878; J1650; J1940; J2060; J2405; U0003; U0005